=== PATIENT | female | born 1995 | race Caucasian/White ===

== ENCOUNTER 2020-07-10 15:52 | Outpatient (CLI) | payer OTHER ==
[2020-07-10 17:55] LABS: BASOPHILS # (AUTO) 0.1 10^3/uL (0.0-0.1); BASOPHILS % (AUTO) 0.7 %; EOSINOPHILS # (AUTO) 0.2 10^3/uL (0.0-0.7); EOSINOPHILS % (AUTO) 2.2 %; HCT - HEMATOCRIT 40.4 % (37.0-47.0); HGB - HEMOGLOBIN 13.3 g/dL (12.0-16.0); LYMPHOCYTES # (AUTO) 2.1 10^3/uL (1.5-3.5); LYMPHOCYTES % (AUTO) 27.3 %; MEAN CORPUSCULAR HEMOGLOBIN 28.2 pg (27.0-31.0); MEAN CORPUSCULAR HGB CONC 32.9 g/dL (32.0-36.0); MEAN CORPUSCULAR VOLUME 85.8 fL (81.0-99.0); MEAN PLATELET VOLUME 10.7 fL (7.9-10.8); MONOCYTES # (AUTO) 0.7 10^3/uL (0.0-1.0); MONOCYTES % (AUTO) 8.6 %; NEUTROPHILS # (AUTO) 4.7 10^3/uL (1.5-6.6); NEUTROPHILS % (AUTO) 60.9 %; PLT - PLATELET COUNT 271 10^3/uL (130-450); RED BLOOD COUNT 4.71 10^6/uL (4.20-5.40); RED CELL DISTRIBUTION WIDTH 12.5 % (12.0-15.0); WHITE BLOOD COUNT 7.7 x10^3/uL (4.8-10.8)
[2020-07-10 18:04] LABS: ALBUMIN 4.7 g/dL (3.2-5.5); ALBUMIN/GLOBULIN RATIO 1.6 (1.0-2.2); BILIRUBIN,TOTAL 0.9 mg/dL (0.2-1.0); CALCIUM 9.8 mg/dL (8.5-10.3); CREATININE 0.7 mg/dL (0.4-1.0); POTASSIUM 4.1 mmol/L (3.5-5.0); TOTAL PROTEIN 7.6 g/dL (6.7-8.2)
[2020-07-10 18:18] LABS: THYROID STIMULATING HORMONE 1.22 uIU/mL (0.34-5.60)
== END 2020-07-10 15:53 | disposition home or self-care (01) ==
LOC: LAB.N 15:52
PROVIDERS: ATTEND Registered Nurse
DX: R11.0 Nausea (principal); Z30.9 Encounter for contraceptive management, unspecified; G47.00 Insomnia, unspecified; G43.909 Migraine, unspecified, not intractable, without status migrainosus; Z86.2 Personal history of diseases of the blood and blood-forming organs and certain disorders involving the immune mechanism
CPT/HCPCS: 36415; 80050; 82728; 83540

== ENCOUNTER 2020-07-14 07:00 | Outpatient (CLI) | payer OTHER ==
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
== END 2020-07-14 23:59 | disposition home or self-care (01) ==
LOC: DI.N 07:00
PROVIDERS: ATTEND Physician Assistant Medical
DX: M54.32 Sciatica, left side (principal)

== ENCOUNTER 2020-11-06 08:00 | Outpatient (CLI) | payer OTHER | END 2020-11-06 23:59 | disposition home or self-care (01) | LOC: LAB.WCP 08:00 | PROVIDERS: ATTEND Physician Assistant Medical | DX: N30.00 Acute cystitis without hematuria (principal) | CPT/HCPCS: 87086 ==

== ENCOUNTER 2021-06-18 11:52 | Emergency (ER) | payer OTHER ==
[2021-06-18] MEDS ORDERED: HYDROmorphone 1 MG/ML CARPUJECT IVP STA (13:33)
[2021-06-18] MEDS ORDERED: SODIUM CHLORIDE 0.9% 1,000 ML IV STA (13:33)
[2021-06-18 13:47] LABS: BASOPHILS % (AUTO) 0.4 %; EOSINOPHILS # (AUTO) 0.4 10^3/uL (0.0-0.7); EOSINOPHILS % (AUTO) 4.2 %; HCT - HEMATOCRIT 41.1 % (37.0-47.0); HGB - HEMOGLOBIN 13.8 g/dL (12.0-16.0); LYMPHOCYTES # (AUTO) 2.1 10^3/uL (1.5-3.5); LYMPHOCYTES % (AUTO) 22.4 %; MEAN CORPUSCULAR HEMOGLOBIN 28.8 pg (27.0-31.0); MEAN CORPUSCULAR HGB CONC 33.6 g/dL (32.0-36.0); MEAN CORPUSCULAR VOLUME 85.8 fL (81.0-99.0); MEAN PLATELET VOLUME 9.6 fL (7.9-10.8); MONOCYTES % (AUTO) 10.5 %; NEUTROPHILS # (AUTO) 5.7 10^3/uL (1.5-6.6); NEUTROPHILS % (AUTO) 62.3 %; PLT - PLATELET COUNT 262 10^3/uL (130-450); RED BLOOD COUNT 4.79 10^6/uL (4.20-5.40); RED CELL DISTRIBUTION WIDTH 12.5 % (12.0-15.0); WHITE BLOOD COUNT 9.2 x10^3/uL (4.8-10.8)
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
[2021-06-18 14:07] LABS: ALBUMIN 4.5 g/dL (3.2-5.5); ALBUMIN/GLOBULIN RATIO 1.5 (1.0-2.2); BILIRUBIN,TOTAL 0.6 mg/dL (0.2-1.0); CALCIUM 9.1 mg/dL (8.5-10.3); CREATININE 0.7 mg/dL (0.4-1.0); POTASSIUM 3.9 mmol/L (3.5-5.0); TOTAL PROTEIN 7.5 g/dL (6.7-8.2)
[2021-06-18 14:09] LABS: HCG,QUALITATIVE BLOOD NEGATIVE
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
[2021-06-18 17:34] VITALS: BP 113/76
== END 2021-06-18 17:38 | disposition home or self-care (01) ==
LOC: ED 11:52
DX: S39.93XA Unspecified injury of pelvis, initial encounter (principal); X58.XXXA Exposure to other specified factors, initial encounter; Y93.39 Activity, other involving climbing, rappelling and jumping off
CPT/HCPCS: 36415; 76830; 76856; 80053; 83690; 84703; 85025; 96374; 99282; 99284; J1170

== ENCOUNTER 2021-06-19 04:21 | Emergency (ER) | payer OTHER ==
[2021-06-19 04:40] VITALS: BP 128/86
[2021-06-19] MEDS ORDERED: KETOROLAC 30 MG/ML VIAL IM STA (05:05)
[2021-06-19] MEDS ORDERED: AZITHROMYCIN 250 MG TABLET PO STA (05:06)
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
== END 2021-06-19 06:16 | disposition home or self-care (01) ==
LOC: ED 04:21
DX: S30.95XA Unspecified superficial injury of vagina and vulva, initial encounter (principal); X58.XXXA Exposure to other specified factors, initial encounter; Y93.39 Activity, other involving climbing, rappelling and jumping off; R19.7 Diarrhea, unspecified
CPT/HCPCS: 96372; 99282; 99283

== ENCOUNTER 2021-09-15 12:19 | Outpatient (CLI) | payer OTHER ==
[2021-09-15 18:38] LABS: BASOPHILS # (AUTO) 0.1 10^3/uL (0.0-0.1); BASOPHILS % (AUTO) 1.1 %; EOSINOPHILS # (AUTO) 0.2 10^3/uL (0.0-0.7); EOSINOPHILS % (AUTO) 4.7 %; HCT - HEMATOCRIT 37.8 % (37.0-47.0); HGB - HEMOGLOBIN 12.3 g/dL (12.0-16.0); LYMPHOCYTES # (AUTO) 1.8 10^3/uL (1.5-3.5); LYMPHOCYTES % (AUTO) 37.5 %; MEAN CORPUSCULAR HEMOGLOBIN 28.3 pg (27.0-31.0); MEAN CORPUSCULAR HGB CONC 32.5 g/dL (32.0-36.0); MEAN CORPUSCULAR VOLUME 86.9 fL (81.0-99.0); MEAN PLATELET VOLUME 10.8 fL (7.9-10.8); MONOCYTES # (AUTO) 0.4 10^3/uL (0.0-1.0); MONOCYTES % (AUTO) 9.2 %; NEUTROPHILS # (AUTO) 2.2 10^3/uL (1.5-6.6); NEUTROPHILS % (AUTO) 47.3 %; PLT - PLATELET COUNT 217 10^3/uL (130-450); RED BLOOD COUNT 4.35 10^6/uL (4.20-5.40); RED CELL DISTRIBUTION WIDTH 12.6 % (12.0-15.0); WHITE BLOOD COUNT 4.7 x10^3/uL (4.8-10.8)
[2021-09-15 18:55] LABS: ALBUMIN 4.1 g/dL (3.2-5.5); ALBUMIN/GLOBULIN RATIO 1.7 (1.0-2.2); BILIRUBIN,TOTAL 0.7 mg/dL (0.2-1.0); CALCIUM 9.1 mg/dL (8.5-10.3); CREATININE 0.7 mg/dL (0.4-1.0); POTASSIUM 4.1 mmol/L (3.5-5.0); TOTAL PROTEIN 6.5 g/dL (6.7-8.2)
== END 2021-09-15 12:20 | disposition home or self-care (01) ==
LOC: LAB.N 12:19
PROVIDERS: ATTEND Nurse Practitioner Family
DX: E61.1 Iron deficiency (principal); R31.9 Hematuria, unspecified; R10.11 Right upper quadrant pain
CPT/HCPCS: 36415; 80053; 81001; 81003; 82728; 83540; 84466; 85025; 87086

== ENCOUNTER 2021-09-15 12:25 | Outpatient (CLI) | payer OTHER ==
--- NOTE | 2021-09-15 13:08 | XRAY Report ---
PROCEDURE: Ankle 3 View RT INDICATIONS: R ANKLE PX TECHNIQUE: 3 views of the ankle were acquired. COMPARISON: None FINDINGS: BONES: No acute, displaced fracture or dislocation. The ankle mortise is maintained on these nonstre ssed views. SOFT TISSUES: No focal abnormality. IMPRESSION: 1.No acute osseous abnormality. Reviewed by: Shawn Simon MD on 09/15/2021 1:07 PM PDT Approved by: Shawn Simon MD on 09/15/2021 1:07 PM PDT Station ID: [id number]
--- NOTE | 2021-09-15 13:09 | XRAY Report ---
PROCEDURE: Foot 2 View RT INDICATIONS: R FOOT PX TECHNIQUE: 2 views of the foot were acquired. COMPARISON: None. FINDINGS: BONES: No acute, displaced fracture or dislocation. SOFT TISSUES: No focal abnormality. IMPRESSION: 1.No acute osseous abnormality. Reviewed by: Shawn Simon MD on 09/15/2021 1:07 PM PDT Approved by: Shawn Simon MD on 09/15/2021 1:07 PM PDT Station ID: [id number]
== END 2021-09-15 12:26 | disposition home or self-care (01) ==
LOC: DI.N 12:25
PROVIDERS: ATTEND Nurse Practitioner Family
DX: M25.571 Pain in right ankle and joints of right foot (principal)

== ENCOUNTER 2022-03-08 16:31 | Outpatient (CLI) | payer OTHER ==
--- NOTE | 2022-03-09 15:37 | Ultrasound Report ---
PROCEDURE: Pelvic w/Transvaginal INDICATIONS: PELVIC PAIN TECHNIQUE: Real-time scanning was performed of the pelvic organs, with image documentation. Additional endovagi nal scanning was necessary due to incomplete visualization of the adnexal and endometrial structures by transabdominal scanning. COMPARISON: Pelvic ultrasound 06/18/2021. FINDINGS: Uterus: Uterus is anteverted and normal in size at 7.8 x 3.1 x 5.0 cm. The myometrium is homogeneou s. The endometrium measures 3.8 mm in combined thickness. IUD is present in appropriate position. Ovaries: The right ovary measures 4.2 x 1.9 x 3.0 cm, with a calculated ovarian volume of 12.5 cc. The left ovary measures 3.9 x 2.5 x 3.5 cm, with a calculated ovarian volume of 17.6 cc. There is a f ocus of heterogeneous echogenicity within the left ovary measuring 2.7 x 2.6 x 2.9 cm. Other: No pathologic free abdominal or pelvic fluid. IMPRESSION: Heterogeneous focus within the left ovary most suggestive of hemorrhagic cyst. Reviewed by: Larisa Michel MD on 03/09/2022 3:35 PM PDT Approved by: Larisa Michel MD on 03/09/2022 3:35 PM PDT Station ID: [id number]
== END 2022-03-08 16:32 | disposition home or self-care (01) ==
LOC: DI 16:31
PROVIDERS: ATTEND Nurse Practitioner Family
DX: R10.2 Pelvic and perineal pain (principal)

== ENCOUNTER 2022-03-26 08:00 | Outpatient (CLI) | payer OTHER ==
[2022-03-26 17:49] LABS: BILIRUBIN,URINE NEGATIVE (NEGATIVE); GLUCOSE, URINE (UA) NEGATIVE (NEGATIVE); KETONES,URINE (UA) NEGATIVE (NEGATIVE); LEUKOCYTE ESTERASE, URINE NEGATIVE (NEGATIVE); NITRITE,URINE NEGATIVE (NEGATIVE); OCCULT BLOOD,URINE NEGATIVE (NEGATIVE); PROTEIN,URINE NEGATIVE (NEGATIVE); UROBILINOGEN,URINE 0.2 (NORMAL) E.U./dL (NORMAL)
[2022-03-26 17:52] LABS: CLARITY,URINE CLEAR (CLEAR)
[2022-03-26 18:10] LABS: BACTERIA,URINE Few /HPF (None Seen); RBC,URINE None Seen /HPF (0-5); SQUAMOUS EPITHELIAL CELL,UR NONE SEEN (<= Few); WBC,URINE 0-3 /HPF (0-5)
[2022-03-27 01:05] LABS: BACTERIAL VAGINOSIS DNA NEGATIVE (NEGATIVE); CANDIDA GLABRATA DNA NEGATIVE (NEGATIVE); CANDIDA GROUP DNA NEGATIVE (NEGATIVE); CANDIDA KRUSEI DNA NEGATIVE (NEGATIVE); TRICHOMONAS VAGINALIS DNA NEGATIVE (NEGATIVE)
== END 2022-03-26 23:59 | disposition home or self-care (01) ==
LOC: LAB.WC 08:00
PROVIDERS: ATTEND Nurse Practitioner
DX: R10.2 Pelvic and perineal pain (principal); R30.0 Dysuria
CPT/HCPCS: 81001; 81514; 87086

== ENCOUNTER 2022-04-09 11:12 | Outpatient (CLI) | payer OTHER ==
--- NOTE | 2022-04-09 17:16 | Ultrasound Report ---
PROCEDURE: Pelvic w/Transvaginal INDICATIONS: PELVIC PAIN TECHNIQUE: Real-time scanning was performed of the pelvic organs, with image documentation. Additional endovagi nal scanning was necessary due to incomplete visualization of the adnexal and endometrial structures by transabdominal scanning. COMPARISON: Pelvic ultrasound, 03/08/2022 and 06/17/2021. FINDINGS: Uterus: Uterus is anteverted and normal in size at 7.7 x 5.4 x 3.2 cm. The myometrium is homogeneou s. The endometrium measures 3.5 mm in combined thickness. IUD is seen in the expected position. Ovaries: The right ovary measures 2.9 x 1.9 x 1.6 cm, with a calculated ovarian volume of 4.6 cc. T he left ovary measures 3.3 x 2.1 x 2.7 cm. There is a 1 cm hemorrhagic cyst in left ovary; previously 2.7 x 2.6 x 2.9 cm. The ovaries have a normal sonographic appearance. Less than 12 follicles can be seen in each ovary. No adnexal masses are seen. Other: No pathologic free abdominal or pelvic fluid. Prominent vein is seen in the right adnexa infe rior lateral to the uterus. IMPRESSION: 1. Normal uterus. IUD is noted in expected position. 2. Decrease in size of hemorrhagic cyst in left ovary. 3. Prominent vein in the right adnexa. Recommend clinical correlation for pelvic congestion syndrome. Reviewed by: Palmira Choudhary MD on 04/09/2022 5:15 PM PST Approved by: Palmira Choudhary MD on 04/09/2022 5:15 PM PST Station ID: [id number]
== END 2022-04-09 11:13 | disposition home or self-care (01) ==
LOC: DI 11:12
PROVIDERS: ATTEND Nurse Practitioner
DX: N83.202 Unspecified ovarian cyst, left side (principal)